=== PATIENT | male | born 1970 | race Hispanic/Latino ===

== ENCOUNTER 2024-12-03 23:53 | Emergency (ER) | payer SELFPAY ==
[~2024-12-03] VITALS: Ht 162.6 cm; Wt 109.0 kg
[~2024-12-03 23:53] MED LIST: GLYBURIDE5 MG OR; HYZAAR1 TA1 OR; METFORMIN500 M1 OR; NAPROSYN500 MG OR; NORVASC10 M1 OR; TRAMADOL HCL50 MG OR
[2024-12-03 23:58] VITALS: BP 89/54
[2024-12-04] VITALS (47 sets, daily range): BP systolic 74–167; BP diastolic 49–84
[2024-12-04] MEDS ORDERED: ASPIRIN 81 MG/TAB PO ONE (00:05)
[2024-12-04] MEDS ORDERED: SODIUM CHLORIDE 0.9% 1,000 ML IV ONE (00:10)
[2024-12-04] MEDS ORDERED: NOREPINEPHRINE BITARTRATE 4 MG in DEXTROSE 5% 250 ML IV ONE (00:10)
[2024-12-04 00:13] LABS: EOS% 3.4 % (0-8); HEMATOCRIT 36.4 % (39.0-50.0); IMMATURE GRANULOCYTES 0.5 % (0.0-5.0); LYMPH% 41.2 % (15-41); MEAN CORPUSCULAR HGB 30.9 pG CALC (26.0-32.0); MEAN CORPUSCULAR HGB CONC 32.7 g/dL CAL (32.0-36.0); MONO% 10.4 % (2-13); NEUT# 2.73 thou/uL (1.82-7.42); NEUT% 43.5 % (42-76); RED BLOOD COUNT 3.85 mill/uL (4.70-6.10); RED CELL DISTRI WIDTH 13.5 % (11.5-15.5)
[2024-12-04 00:27] LABS: HEMOGLOBIN 11.9 g/dl (14.0-18.0); MEAN CELL VOLUME 94.5 fL CALC (80.0-100.0)
[2024-12-04 00:30] LABS: ALKALINE PHOSPHATASE 63 u/l (38-126); BILIRUBIN, TOTAL 0.8 mg/dL (0.2-1.3); BUN 29 mg/dL (9-20); BUN/CREATININE RATIO 19 (12-20 (CALC)); CARBON DIOXIDE 26 mmol/l (22-30); CHLORIDE 102 mmol/l (95-108); CPK 57 u/l (55-170); CREATININE 1.5 mg/dL (0.7-1.3); ESTIMATED GFR 54 ML/MIN (>=90 (CALC)); SGOT/AST 21 u/l (17-59); TOTAL PROTEIN 6.8 g/dL (6.3-8.2)
[2024-12-04 00:31] LABS: ALBUMIN 3.5 g/dL (3.2-5.0); ANION GAP 13 (6-22 (CALC)); SODIUM 136 mmol/l (137-146)
[2024-12-04] MEDS ORDERED: FLEXERIL5 M1 PO (01:05)
[2024-12-04] MEDS ORDERED: AUGMENTIN250 MG PO (01:12)
[2024-12-04] MEDS ORDERED: SILDENAFIL50 M1 PO (01:20)
[2024-12-04] MEDS ORDERED: CARVEDILOL3.125 MG PO (02:40)
[2024-12-04] MEDS ORDERED: ACTOS30 MG PO (02:42)
[2024-12-04] MEDS ORDERED: COZAAR50 MG PO (02:43)
[2024-12-04] MEDS ORDERED: HYDROCHLOROT12.5 M1 PO (02:44)
[2024-12-04] MEDS ORDERED: ASPIRINCHW 81MG PO (02:44)
[2024-12-04] MEDS ORDERED: AMLODIPINE BESY10 MG PO (02:46)
[2024-12-04] MEDS ORDERED: METFORMIN500 M2 PO (02:46)
[2024-12-04] MEDS ORDERED: ATROPINE SULFATE 0.4 MG/ML IV ONE (03:00)
== END 2024-12-04 05:32 | DRG 309 ==
LOC: ED 23:53
PROVIDERS: Family Medicine
DX: R00.1 Bradycardia, unspecified (principal); I31.39 Other pericardial effusion (noninflammatory); Z20.822 Contact with and (suspected) exposure to COVID-19
CPT/HCPCS: J0461; J0696; Q9967